=== PATIENT | male | born 1970 | race Caucasian/White ===

== ENCOUNTER → 2022-04-19 12:30 | Outpatient (CLI) | payer OTHER, SELFPAY ==
[2022-04-19 13:25] LABS: Influenza A - CEPHEID Flu A NEGATIVE (NEGATIVE); Influenza B - CEPHEID Flu B NEGATIVE (NEGATIVE)
[2022-04-19 13:58] LABS: COVID-19 CEPHEID PCR (VTM/NP) Negative (Negative)
== END ==
PROVIDERS: Visit Provider Physician Assistant
DX: R50.9 Fever, unspecified (principal); Z20.822 Contact with and (suspected) exposure to COVID-19; R05.9 Cough, unspecified
CPT/HCPCS: 0240U